=== PATIENT | female | born 1975 | race Caucasian/White ===

== ENCOUNTER 2017-08-01 08:59 | Emergency (ER) | payer OTHER ==
[~2017-08-01] VITALS: Ht 162.6 cm; Wt 64.0 kg
[2017-08-01 09:00] VITALS: BP 150/105; PULSE 88; RESP 20; TEMP 99.4; O2SAT 99
--- NOTE | 2017-08-01 11:58 | PD ---
HPI Chief Complaint: Related Problem Time Seen by Provider: 11:58 Travel History International Travel<30 days: No Contact w/Intl Traveler<30days: No Traveled to known affect area: No PFSH Past Medical History ?: LMP: 06/18/17 Allergies-Medications (Allergen,Severity, Reaction): Coded Allergies: No Known Allergies (Unverified , 08/01/17) Data Data Last Documented VS Vital Signs Date Time Temp Pulse Resp B/P (MAP) Pulse Ox O2 Delivery O2 Flow Rate FiO2 08/01/17 09:00 99.4 88 20 150/105 (120) 99 Room Air Orders Orders Beta Hcg (Quant/Titer) (08/01/17 12:06) Complete Blood Count With Diff (08/01/17 12:06) Basic Metabolic Panel (Bmp) (08/01/17 12:06) Type And Screen (08/01/17 12:06) Ed Urine Pregnancytest Poc (08/01/17 12:06) Ed Poc Ultrasound (08/01/17 12:06) Telly Garzon MD Aug 01, 2017 11:58
[2017-08-01] MEDS ORDERED: METO50TA PO (12:10)
[2017-08-01] MEDS ORDERED: CLON1TAB PO (12:10)
[2017-08-01] MEDS ORDERED: PROZ40CA PO (12:10)
[2017-08-01 12:35] LABS: AUTOMATED NEUTROPHIL # 15.9 TH/MM3 (1.8-7.7); BASOPHIL # 0.1 TH/MM3 (0-0.2); BASOPHIL % 0.5 % (0.0-2.0); EOSINOPHIL # 0.4 TH/MM3 (0-0.4); EOSINOPHIL % 1.7 % (0.0-4.0); HEMATOCRIT 35.5 % (35.0-46.0); HEMOGLOBIN 11.6 GM/DL (11.6-15.3); LYMPH % 18.9 % (9.0-44.0); MEAN CELL VOLUME 89.8 FL (80.0-100.0); MEAN CORPUSCULAR HEMOGLOBIN 29.3 PG (27.0-34.0); MEAN CORPUSCULAR HGB CONC 32.6 % (32.0-36.0); MEAN PLATELET VOLUME 7.5 FL (7.0-11.0); MONO % 2.9 % (0.0-8.0); MONOCYTE # 0.6 TH/MM3 (0-0.9); PLATELET COUNT 298 TH/MM3 (150-450); RED BLOOD COUNT 3.95 MIL/MM3 (4.00-5.30); RED CELL DISTRIBUTION WIDTH 13.4 % (11.6-17.2); WHITE BLOOD COUNT 20.9 TH/MM3 (4.0-11.0)
[2017-08-01 12:50] LABS: BICARBONATE 24.4 MEQ/L (21.0-32.0); CALCIUM 8.4 MG/DL (8.5-10.1); CREATININE 0.78 MG/DL (0.50-1.00)
--- NOTE | 2017-08-01 12:53 | PD ---
HPI Chief Complaint: Related Problem Time Seen by Provider: 14:28 Travel History International Travel<30 days: No Contact w/Intl Traveler<30days: No Traveled to known affect area: No History of Present Illness HPI 41-year-old female presents emergency department for evaluation of vaginal bleeding and abdominal cramping. Patient approximately 6-7 weeks . Her last menstrual cycle was 06/18/17. Patient states she has had dark brown vaginal spotting times one week. She was evaluated at [facility] on Sunday for the dark brown spotting. She had an HCG drawn at that time. We will call and get the results of this blood test. Today patient states she passed one large dark red clot and then had moderate amount of vaginal bleeding. Patient is a Para 5 0. Patient states her previous pregnancies were many years ago, hx of 2 abortions, 1 miscarriage and 1 ectopic . PFSH Past Medical History ?: LMP: 06/18/17 Social History Tobacco Use: Yes Allergies-Medications (Allergen,Severity, Reaction): Coded Allergies: No Known Allergies (Unverified , 08/01/17) Reported Meds & Prescriptions Reported Meds & Active Scripts Active Reported Clonazepam 1 Mg Tab 1 Mg PO BID Prozac (Fluoxetine HCl) 40 Mg Cap 40 Mg PO DAILY Metoprolol Tartrate 50 Mg Tab 50 Mg PO DAILY Review of Systems Except as stated in HPI: all other systems reviewed are Neg Physical Exam Narrative GENERAL: Well-nourished, well-developed white 41 year old female patient that is tearful and appears mildly anxious. SKIN: Focused skin assessment warm/dry. HEAD: Normocephalic. Atraumatic. EYES: No scleral icterus. No injection or drainage. NECK: Supple, trachea midline. No JVD or lymphadenopathy. CARDIOVASCULAR: Regular rate and rhythm without murmurs, gallops, or rubs. RESPIRATORY: Breath sounds equal bilaterally. No accessory muscle use. GASTROINTESTINAL: Abdomen soft, non-tender, nondistended. MUSCULOSKELETAL: No cyanosis, or edema. BACK: Nontender without obvious deformity. No CVA tenderness. Data Data Last Documented VS Vital Signs Date Time Temp Pulse Resp B/P (MAP) Pulse Ox O2 Delivery O2 Flow Rate FiO2 08/01/17 16:20 08/01/17 09:00 99.4 88 20 99 Room Air Orders Orders Beta Hcg (Quant/Titer) (08/01/17 12:06) Complete Blood Count With Diff (08/01/17 12:06) Basic Metabolic Panel (Bmp) (08/01/17 12:06) Type And Screen (08/01/17 12:06) Ed Urine Pregnancytest Poc (08/01/17 12:06) Ed Poc Ultrasound (08/01/17 12:06) Urinalysis - C+S If Indicated (08/01/17 12:55) Us Pelvis (Ques Pr/Ect)W Trans (08/01/17 ) Ed Discharge Order (08/01/17 16:09) Labs Laboratory Tests Test 08/01/17 12:20 08/01/17 12:30 White Blood Count 20.9 TH/MM3 Red Blood Count 3.95 MIL/MM3 Hemoglobin 11.6 GM/DL Hematocrit 35.5 % Mean Corpuscular Volume 89.8 FL Mean Corpuscular Hemoglobin 29.3 PG Mean Corpuscular Hemoglobin Concent 32.6 % Red Cell Distribution Width 13.4 % Platelet Count 298 TH/MM3 Mean Platelet Volume 7.5 FL Neutrophils (%) (Auto) 76.0 % Lymphocytes (%) (Auto) 18.9 % Monocytes (%) (Auto) 2.9 % Eosinophils (%) (Auto) 1.7 % Basophils (%) (Auto) 0.5 % Neutrophils # (Auto) 15.9 TH/MM3 Lymphocytes # (Auto) 4.0 TH/MM3 Monocytes # (Auto) 0.6 TH/MM3 Eosinophils # (Auto) 0.4 TH/MM3 Basophils # (Auto) 0.1 TH/MM3 CBC Comment DIFF FINAL Differential Comment Blood Urea Nitrogen 9 MG/DL Creatinine 0.78 MG/DL Random Glucose 118 MG/DL Calcium Level 8.4 MG/DL Sodium Level 139 MEQ/L Potassium Level 3.9 MEQ/L Chloride Level 106 MEQ/L Carbon Dioxide Level 24.4 MEQ/L Anion Gap 9 MEQ/L Estimat Glomerular Filtration Rate 82 ML/MIN Human Chorionic Gonadotropin, Quant 56141 MIU/ML Urine Color YELLOW Urine Turbidity CLEAR Urine pH 6.5 Urine Specific [place] 1.016 Urine Protein NEG mg/dL Urine Glucose (UA) NEG mg/dL Urine Ketones NEG mg/dL Urine Occult Blood MOD Urine Nitrite NEG Urine Bilirubin NEG Urine Urobilinogen LESS THAN 2.0 MG/DL Urine Leukocyte Esterase NEG Urine RBC 178 /hpf Urine WBC 2 /hpf Urine Squamous Epithelial Cells 1 /hpf Urine Mucus FEW /lpf Microscopic Urinalysis Comment CULT NOT INDICATED MDM Medical Decision Making Medical Screen Exam Complete: Yes Emergency Medical Condition: Yes Differential Diagnosis Differential diagnosis include but not limited to spontaneous , complete , ectopic , normal Narrative Course CBC, BMP, type and screen, beta Quant, UA ordered and pending. POC test positive. [facility] On Sunday her Beta was 11,569. CBC shows leukocytosis at 20.9 BMP shows GFR 82, Glucose 118, Calcium 8.4 Beta Quant [id number] UA shows no acute abnormality Dr Garzon performed a bedside US to evaluated for intrauterine . It could not be determined with the bedside ultrasound machine. Pelvic US shows no intrauterine identified, small sub-1.5 cm hypoechoic myometrial masses consistent with uterine fibroids, heterogeneously prominent endometrial stripe likely reflects blood products. Patient case discussed with my attending Dr. Garzon and the patient will be discharged home with instructions to follow-up in 2 days for repeat beta but otherwise return to the emergency Department with any worsening condition or acute changes. Patient discharged home at this time. Diagnosis Primary Impression: Miscarriage, threatened, early Patient Instructions: General Instructions, Threatened Miscarriage (ED) Additional Instructions: Please return to emergency department in 48 hours for repeat blood draw to determine hormone level. Disposition: 01 DISCHARGE HOME Condition: Stable DarbyArabella mondragonsergei ODONNELL Aug 01, 2017 12:53
--- NOTE | 2017-08-01 13:21 | PD ---
Physical Exam Date Seen by Provider: Aug 01, 2017 Narrative 41-year-old female came to the emergency room for vaginal bleeding and cramping since this morning. She passed a large clot this morning. Patient is seen by my nurse practitioner and I'm supervising her. The test results came back and beta-hCG Quant has decreased since 48 hours ago. Patient is A3. I did a bedside pelvic ultrasound which was inconclusive. An official ultrasound has been ordered. Please refer to my procedure note. Data Data Last Documented VS Vital Signs Date Time Temp Pulse Resp B/P (MAP) Pulse Ox O2 Delivery O2 Flow Rate FiO2 08/01/17 16:20 08/01/17 09:00 99.4 88 20 99 Room Air Orders Orders Beta Hcg (Quant/Titer) (08/01/17 12:06) Complete Blood Count With Diff (08/01/17 12:06) Basic Metabolic Panel (Bmp) (08/01/17 12:06) Type And Screen (08/01/17 12:06) Ed Urine Pregnancytest Poc (08/01/17 12:06) Ed Poc Ultrasound (08/01/17 12:06) Urinalysis - C+S If Indicated (08/01/17 12:55) Us Pelvis (Ques Pr/Ect)W Trans (08/01/17 ) Ed Discharge Order (08/01/17 16:09) Labs Laboratory Tests Test 08/01/17 12:20 08/01/17 12:30 White Blood Count 20.9 TH/MM3 Red Blood Count 3.95 MIL/MM3 Hemoglobin 11.6 GM/DL Hematocrit 35.5 % Mean Corpuscular Volume 89.8 FL Mean Corpuscular Hemoglobin 29.3 PG Mean Corpuscular Hemoglobin Concent 32.6 % Red Cell Distribution Width 13.4 % Platelet Count 298 TH/MM3 Mean Platelet Volume 7.5 FL Neutrophils (%) (Auto) 76.0 % Lymphocytes (%) (Auto) 18.9 % Monocytes (%) (Auto) 2.9 % Eosinophils (%) (Auto) 1.7 % Basophils (%) (Auto) 0.5 % Neutrophils # (Auto) 15.9 TH/MM3 Lymphocytes # (Auto) 4.0 TH/MM3 Monocytes # (Auto) 0.6 TH/MM3 Eosinophils # (Auto) 0.4 TH/MM3 Basophils # (Auto) 0.1 TH/MM3 CBC Comment DIFF FINAL Differential Comment Blood Urea Nitrogen 9 MG/DL Creatinine 0.78 MG/DL Random Glucose 118 MG/DL Calcium Level 8.4 MG/DL Sodium Level 139 MEQ/L Potassium Level 3.9 MEQ/L Chloride Level 106 MEQ/L Carbon Dioxide Level 24.4 MEQ/L Anion Gap 9 MEQ/L Estimat Glomerular Filtration Rate 82 ML/MIN Human Chorionic Gonadotropin, Quant 16953 MIU/ML Urine Color YELLOW Urine Turbidity CLEAR Urine pH 6.5 Urine Specific [place] 1.016 Urine Protein NEG mg/dL Urine Glucose (UA) NEG mg/dL Urine Ketones NEG mg/dL Urine Occult Blood MOD Urine Nitrite NEG Urine Bilirubin NEG Urine Urobilinogen LESS THAN 2.0 MG/DL Urine Leukocyte Esterase NEG Urine RBC 178 /hpf Urine WBC 2 /hpf Urine Squamous Epithelial Cells 1 /hpf Urine Mucus FEW /lpf Microscopic Urinalysis Comment CULT NOT INDICATED MDM Supervised Visit with TEJ: Yes Procedures Procedure Narrative Emergency Department Pelvic ultrasound was performed with patient consent. The curvilinear probe was used in the transverse and sagittal views within the suprapubic region revealing no intrauterine . There was fluid in the cul-de-sac noticed. Telly Garzon MD Aug 01, 2017 13:21
[2017-08-01 13:35] LABS: BILIRUBIN, URINE NEG (NEG); BLOOD, URINE MOD (NEG); GLUCOSE,URINE NEG (NEG); KETONE, URINE NEG (NEG); MUCUS URINE FEW /lpf (OCC); NITRITE,URINE NEG (NEG); PH, URINE 6.5 (5.0-8.5); SQUAMOUS EPITHELIAL CELL URINE 1 /hpf (0-5); URINE COLOR YELLOW (YELLW/STRAW); URINE LEUKOCYTE ESTERASE NEG (NEG)
--- NOTE | 2017-08-01 14:55 | RADRPT ---
EXAM DATE/TIME: 08/01/2017 13:29 [place] COMPARISON: No previous studies available for comparison. INDICATIONS : Pelvic bleeding for 3-4 days. LAB(S): Beta-hC,[id number] MEDICAL HISTORY : . SURGICAL HISTORY : None. ENCOUNTER: Initial ACUITY: 1 day PAIN SCORE: 4/10 LOCATION: Bilateral pelvis MEASUREMENTS: UTERUS: 7.7 x 5.0 x 4.1 cm ENDOMETRIAL STRIPE: 10 mm RIGHT OVARY: 2.8 x 2.7 x 2.2 cm LEFT OVARY: 1.4 x 2.2 x 1.2 cm FREE FLUID: Yes posterior cul de sac FINDINGS: UTERUS: Small predominantly hypoechoic myometrial masses measuring 0.8 x 0.9 x 1.1 cm in the mid uterine wall and 0.8 x 1.2 x 0.3 cm in the lower uterine segment. No intrauterine gestational sac is demonstrated . The endometrium is heterogeneous and prominent. RIGHT OVARY: Ovary contains no mass or significant cystic lesion. LEFT OVARY: Ovary contains no mass or significant cystic lesion. Single avascular cyst measuring 1.7 x 1.3 x 2.3 cm. MISCELLANEOUS: Trace free fluid. CONCLUSION: 1. No intrauterine identified. 2. Small sub 1.5 cm hypoechoic myometrial masses consistent with uterine fibroids. 3. Heterogeneously prominent endometrial stripe likely reflects blood products.. Renny Wood MD on August 01, 2017 at 14:47 Board Certified Radiologist. This report was verified electronically.
== END 2017-08-01 16:23 | disposition home or self-care (01) ==
LOC: NEPD 08:59
DX: O20.0 Threatened abortion (principal); Z3A.01 Less than 8 weeks gestation of pregnancy; Z72.0 Tobacco use; Z79.899 Other long term (current) drug therapy
CPT/HCPCS: 76700; 76817; 80048; 81001; 84702; 84703; 85025; 86850; 86900; 86901; 99284

== ENCOUNTER 2017-08-14 19:05 | Emergency (ER) | payer OTHER ==
[~2017-08-14] VITALS: Ht 162.6 cm; Wt 61.4 kg
[~2017-08-14 19:05] MED LIST: CLON1TAB PO; METO50TA PO; PROZ40CA PO
[2017-08-14 19:06] VITALS: BP 158/85; PULSE 134; RESP 20; TEMP 98.4; O2SAT 100
[2017-08-14 21:37] LABS: AUTOMATED NEUTROPHIL # 11.9 TH/MM3 (1.8-7.7); BASOPHIL # 0.1 TH/MM3 (0-0.2); BASOPHIL % 0.7 % (0.0-2.0); EOSINOPHIL # 0.4 TH/MM3 (0-0.4); EOSINOPHIL % 1.9 % (0.0-4.0); LYMPH % 30.9 % (9.0-44.0); LYMPHOCYTE # 6.1 TH/MM3 (1.0-4.8); MEAN CELL VOLUME 88.6 FL (80.0-100.0); MEAN CORPUSCULAR HEMOGLOBIN 28.8 PG (27.0-34.0); MEAN CORPUSCULAR HGB CONC 32.6 % (32.0-36.0); MEAN PLATELET VOLUME 7.7 FL (7.0-11.0); MONO % 5.6 % (0.0-8.0); MONOCYTE # 1.1 TH/MM3 (0-0.9); NEUT % 60.9 % (16.0-70.0); PLATELET COUNT 338 TH/MM3 (150-450); RED BLOOD COUNT 4.18 MIL/MM3 (4.00-5.30); RED CELL DISTRIBUTION WIDTH 13.4 % (11.6-17.2); WHITE BLOOD COUNT 19.6 TH/MM3 (4.0-11.0)
[2017-08-14 21:40] LABS: AMORPHOUS SEDIMENT, URINE RARE; BACTERIA, URINE OCC /hpf; BILIRUBIN, URINE NEG (NEG); BLOOD, URINE LARGE (NEG); GLUCOSE,URINE NEG (NEG); KETONE, URINE NEG (NEG); MUCUS URINE FEW /lpf (OCC); NITRITE,URINE NEG (NEG); SQUAMOUS EPITHELIAL CELL URINE 3 /hpf (0-5); URINE COLOR YELLOW (YELLW/STRAW); URINE LEUKOCYTE ESTERASE NEG (NEG)
[2017-08-14 21:47] LABS: BICARBONATE 24.7 MEQ/L (21.0-32.0); CALCIUM 9.2 MG/DL (8.5-10.1); CREATININE 0.93 MG/DL (0.50-1.00)
[2017-08-14 22:07] LABS: LYMPHOCYTES 36 % (9-44); MONOCYTES 2 % (0-8); NEUTROPHIL # MANUAL DIFF 12.2 TH/MM3 (1.8-7.7); POLYS (SEG NEUTROPHILS) 62 % (16-70)
[2017-08-14 22:08] LABS: TOXIC GRANULATION 1+ (NORMAL)
--- NOTE | 2017-08-15 12:17 | PD ---
Physical Exam Date Seen by Provider: Aug 15, 2017 Time Seen by Provider: 22:58 Narrative 41 year old female presents to the emergency department stating she was diagnosed with a miscarriage 2 weeks ago. She reports continued vaginal bleeding and is concerned that she passed some tissue today. Current pain is 7/ 10. Data Data Last Documented VS Vital Signs Date Time Temp Pulse Resp B/P (MAP) Pulse Ox O2 Delivery O2 Flow Rate FiO2 08/14/17 19:06 98.4 134 20 158/85 (109) 100 Room Air Orders Orders Beta Hcg (Quant/Titer) (08/14/17 19:26) Complete Blood Count With Diff (08/14/17 19:26) Basic Metabolic Panel (Bmp) (08/14/17 19:26) Urinalysis - C+S If Indicated (08/14/17 19:26) Labs Laboratory Tests Test 08/14/17 20:55 White Blood Count 19.6 TH/MM3 Red Blood Count 4.18 MIL/MM3 Hemoglobin 12.0 GM/DL Hematocrit 37.0 % Mean Corpuscular Volume 88.6 FL Mean Corpuscular Hemoglobin 28.8 PG Mean Corpuscular Hemoglobin Concent 32.6 % Red Cell Distribution Width 13.4 % Platelet Count 338 TH/MM3 Mean Platelet Volume 7.7 FL Neutrophils (%) (Auto) 60.9 % Lymphocytes (%) (Auto) 30.9 % Monocytes (%) (Auto) 5.6 % Eosinophils (%) (Auto) 1.9 % Basophils (%) (Auto) 0.7 % Neutrophils # (Auto) 11.9 TH/MM3 Lymphocytes # (Auto) 6.1 TH/MM3 Monocytes # (Auto) 1.1 TH/MM3 Eosinophils # (Auto) 0.4 TH/MM3 Basophils # (Auto) 0.1 TH/MM3 CBC Comment AUTO DIFF Differential Total Cells Counted 100 Neutrophils % (Manual) 62 % Lymphocytes % 36 % Monocytes % 2 % Neutrophils # (Manual) 12.2 TH/MM3 Differential Comment FINAL DIFF MANUAL Toxic Granulation 1+ Platelet Estimate NORMAL Platelet Morphology Comment NORMAL Urine Color YELLOW Urine Turbidity CLEAR Urine pH 6.0 Urine Specific [place] 1.023 Urine Protein TRACE mg/dL Urine Glucose (UA) NEG mg/dL Urine Ketones NEG mg/dL Urine Occult Blood LARGE Urine Nitrite NEG Urine Bilirubin NEG Urine Urobilinogen LESS THAN 2.0 MG/DL Urine Leukocyte Esterase NEG Urine RBC /hpf Urine WBC 5 /hpf Urine Squamous Epithelial Cells 3 /hpf Urine Amorphous Sediment RARE Urine Bacteria OCC /hpf Urine Mucus FEW /lpf Microscopic Urinalysis Comment CULT NOT INDICATED Blood Urea Nitrogen 13 MG/DL Creatinine 0.93 MG/DL Random Glucose 104 MG/DL Calcium Level 9.2 MG/DL Sodium Level 137 MEQ/L Potassium Level 3.8 MEQ/L Chloride Level 106 MEQ/L Carbon Dioxide Level 24.7 MEQ/L Anion Gap 6 MEQ/L Estimat Glomerular Filtration Rate 67 ML/MIN Human Chorionic Gonadotropin, Quant 2091 MIU/ML MDM Supervised Visit with TEJ: No Narrative Course 41 year old female presents to the emergency department for evaluation of vaginal bleeding for 2 weeks after being diagnosed with a miscarriage. Patient is initially seen in triage and work-up is initiated. Patient left AMA before she could be moved to a medical bed. Diagnosis Primary Impression: Left against medical advice Disposition: 07 AGAINST MEDICAL ADVICE Lu Paulson Aug 15, 2017 12:17
== END 2017-08-14 22:58 | disposition left against medical advice (07) ==
LOC: NED 19:05
DX: N93.9 Abnormal uterine and vaginal bleeding, unspecified (principal)
CPT/HCPCS: 80048; 81001; 84702; 85007; 85027; 99283